=== PATIENT | female | born 1985 | race Caucasian/White ===

== ENCOUNTER 2020-01-09 20:51 | Emergency (ER) | payer OTHER ==
[~2020-01-09] VITALS: Ht 162.6 cm; Wt 68.0 kg
[2020-01-09 20:52] VITALS: Ht 162.6 cm; Wt 68.0 kg
[2020-01-09 21:27] LABS: BASOPHIL % 1.3 % (0-2); RED CELL DISTRIBUTION WIDTH 12.4 % (11.5-14.5)
[2020-01-09 21:28] LABS: PLATELET COUNT 480 x10^3mcL (130-400)
[2020-01-09 21:34] LABS: CALCIUM 8.9 mg/dL (8.5-10.1); CARBON DIOXIDE 31.2 mmol/L (21-32); CHLORIDE SERUM 101 mmol/L (98-107); CREATININE SERUM 1.1 mg/dL (0.6-1.0); GFR1 > 60 mL/min; GLUCOSE SERUM 111 mg/dL (74-106); POTASSIUM SERUM 3.7 mmol/L (3.5-5.1); SODIUM SERUM 138 mmol/L (136-145)
[2020-01-09 21:39] LABS: ALBUMIN 2.8 g/dL (3.4-5.0); ALKALINE PHOSPHATASE 132 U/L (46-116); ALT/SGPT 33 U/L (14-59); AST/SGOT 22 U/L (15-37); BILIRUBIN TOTAL 0.3 mg/dL (0.20-1.00); TOTAL PROTEIN, SERUM 7.6 g/dL (6.4-8.2)
[2020-01-10 03:25] VITALS: BP 111/78
== END 2020-01-10 03:25 | disposition home or self-care (01) ==
LOC: ED 20:51 → EDBD 20:51 → ED 01-10 03:25
PROVIDERS: Emergency Medicine
DX: N39.0 Urinary tract infection, site not specified (principal); K52.9 Noninfective gastroenteritis and colitis, unspecified
CPT/HCPCS: J1885; J2405